=== PATIENT | female | born 1955 | race Caucasian/White ===

== ENCOUNTER 2017-10-23 12:56 | Emergency (ER) | payer OTHER ==
[2017-10-23] MEDS ORDERED: Acetaminophen 500 MG TAB ONE (13:50)
[2017-10-23] MEDS ORDERED: Ibuprofen 800 MG TAB ONE (13:50)
--- NOTE | 2017-10-23 14:29 | RAD ---
RIGHT ANKLE 3 VIEWS: HISTORY: Injury with pain. FINDINGS: Mild soft tissue swelling laterally. No evidence of fracture. IMPRESSION: No acute fracture identified. POS: [id number]
== END 2017-10-23 13:49 | disposition home or self-care (01) ==
LOC: MADERS 12:56
DX: S93.401A Sprain of unspecified ligament of right ankle, initial encounter (principal); E78.00 Pure hypercholesterolemia, unspecified; W19.XXXA Unspecified fall, initial encounter

== ENCOUNTER 2018-01-25 09:32 | Emergency (ER) | payer OTHER | END 2018-01-25 10:11 | disposition home or self-care (01) | LOC: MADERS 09:32 | DX: R05 Cough (principal); E78.5 Hyperlipidemia, unspecified; Z79.899 Other long term (current) drug therapy; K08.89 Other specified disorders of teeth and supporting structures | CPT/HCPCS: 99281 ==

== ENCOUNTER 2019-04-09 21:52 | Emergency (ER) | payer OTHER ==
--- NOTE | 2019-04-09 22:25 | RAD ---
XR Ankle Lt 3 View STANDARD INDICATION: Left ankle injury COMPARISON: None. FINDINGS: Bones: There is a mildly displaced spiral fracture involving the lateral malleolus. The distal fractu re fragment is displaced posterior laterally one cortex width. There is also an additional mildly impacted fracture involving the posterior malleolus. Ankle mortise: Symmetric. Talar Dome: Intact. Subtalar joint: Normal. Visualized hindfoot: Normal. Periarticular soft tissues: There is prominent soft tissue swelling surrounding the left ankle IMPRESSION: 1. Mildly displaced spiral fracture of the lateral malleolus. 2. Mildly impacted posterior malleolus fracture
== END 2019-04-09 23:05 | disposition home or self-care (01) ==
LOC: MADERS 21:52
DX: S82.842A Displaced bimalleolar fracture of left lower leg, initial encounter for closed fracture (principal); E78.00 Pure hypercholesterolemia, unspecified; F17.210 Nicotine dependence, cigarettes, uncomplicated; Z79.899 Other long term (current) drug therapy; W17.89XA Other fall from one level to another, initial encounter
CPT/HCPCS: 27810

== ENCOUNTER 2024-12-15 13:04 | Emergency (ER) | payer MEDICARE, SELFPAY ==
[~2024-12-15 13:04] MED LIST: Iopamidol 370 76% 100 ML VIAL ONE
[2024-12-15 13:51] LABS: #Basophils 0.1 thou/uL (0.0-0.2); #Eosinophils 0.1 thou/uL (0.0-0.7); #Lymphocytes 0.8 thou/uL (1.20-3.40); #Monocytes 0.7 thou/uL (0.11-0.59); #Neutrophils 9.7 thou/uL (1.40-6.50); %Basophils 0.6 % (0.0-1.0); %Eosinophils 0.6 % (0.0-10.0); %Lymphocytes 7.5 % (21.0-51.0); %Monocytes 5.7 % (0.0-10.0); %Neutrophils 85.6 % (42.0-75.0); Hematocrit 28.0 % (36.0-47.0); Hemoglobin 8.7 g/dL (12.0-16.0); Mean Corpuscular Hemoglobin 31.3 pg (27.0-31.0); Mean Corpuscular Volume 100.7 fl (78.0-98.0); Platelet Count 571 10x3/uL (130-400); Red Blood Cell (RBC) Count 2.78 mill/uL (4.20-5.40); White Blood Cell (WBC) Count 11.3 10x3/uL (4.8-10.8)
[2024-12-15 14:05] LABS: ALT (SGPT) 18 U/L (Less than 34); AST (SGOT) 31 U/L (11-34); Albumin 2.8 g/dL (3.1-4.5); Alkaline Phosphatase 124 U/L (40-110); Anion Gap 20 mmol/L (10-20); BUN (Urea Nitrogen) 12 mg/dL (9.8-20.1); Bilirubin, Total 0.3 mg/dL (0.3-1.2); Calc. Creatinine Clearance 0 mL/min (70-130); Calcium 8.8 mg/dL (7.8-10.44); Carbon Dioxide 15 mmol/L (23-31); Chloride 107 mmol/L (98-107); Globulin 3.8 g/dL (2.4-3.5); Glucose 130 mg/dL (80-115); Magnesium 1.3 mg/dL (1.6-2.6); Potassium 3.8 mmol/L (3.5-5.1); Sodium 138 mmol/L (136-145)
[2024-12-15] MEDS ORDERED: Magnesium 2 GM/50 ML BAG (IN WATER) ONE (14:31)
== END 2024-12-15 16:44 | disposition home or self-care (01) ==
LOC: MADERS 13:04
DX: J95.89 Other postprocedural complications and disorders of respiratory system, not elsewhere classified (principal); F41.1 Generalized anxiety disorder; D64.9 Anemia, unspecified; E83.42 Hypomagnesemia; E87.20 Acidosis, unspecified; F17.210 Nicotine dependence, cigarettes, uncomplicated
CPT/HCPCS: 71275; 83735; 93005; 94760; 96365; 96366; 96375; 99285; J2060; J3475; J7120; Q9967; 80053; 84443; 85025

== ENCOUNTER 2024-12-27 18:49 | Emergency (ER) | payer MEDICARE ==
[2024-12-27] MEDS ORDERED: Aspirin Chewable 81 MG TAB ONE (19:22)
[2024-12-27 19:28] LABS: #Basophils 0.1 thou/uL (0.0-0.2); #Eosinophils 0.0 thou/uL (0.0-0.7); #Lymphocytes 1.3 thou/uL (1.20-3.40); #Monocytes 1.1 thou/uL (0.11-0.59); #Neutrophils 5.7 thou/uL (1.40-6.50); %Basophils 0.7 % (0.0-1.0); %Eosinophils 0.4 % (0.0-10.0); %Lymphocytes 16.2 % (21.0-51.0); %Monocytes 13.4 % (0.0-10.0); %Neutrophils 69.3 % (42.0-75.0); Hematocrit 26.8 % (36.0-47.0); Hemoglobin 8.9 g/dL (12.0-16.0); Mean Corpuscular Hemoglobin 30.7 pg (27.0-31.0); Mean Corpuscular Volume 92.6 fl (78.0-98.0); Platelet Count 408 10x3/uL (130-400); Red Blood Cell (RBC) Count 2.90 mill/uL (4.20-5.40); White Blood Cell (WBC) Count 8.2 10x3/uL (4.8-10.8)
[2024-12-27 19:43] LABS: Troponin I Less than 0.010 ng/mL (< 0.028)
[2024-12-27 19:44] LABS: ALT (SGPT) 14 U/L (Less than 34); AST (SGOT) 23 U/L (11-34); Albumin 3.0 g/dL (3.1-4.5); Alkaline Phosphatase 125 U/L (40-110); Anion Gap 21 mmol/L (10-20); BUN (Urea Nitrogen) 9 mg/dL (9.8-20.1); Bilirubin, Total 0.4 mg/dL (0.3-1.2); Calc. Creatinine Clearance 0 mL/min (70-130); Calcium 9.2 mg/dL (7.8-10.44); Carbon Dioxide 19 mmol/L (23-31); Chloride 99 mmol/L (98-107); Globulin 4.1 g/dL (2.4-3.5); Glucose 129 mg/dL (80-115); Lipase 27 U/L (8-78); Magnesium 1.3 mg/dL (1.6-2.6); Potassium 3.9 mmol/L (3.5-5.1); Sodium 135 mmol/L (136-145)
[2024-12-27] MEDS ORDERED: Magnesium 2 GM/50 ML BAG (IN WATER) ONE (20:12)
[2024-12-27 21:51] LABS: Troponin I Less than 0.010 ng/mL (< 0.028)
== END 2024-12-27 22:25 | disposition home or self-care (01) ==
LOC: MADERS 18:49
DX: F41.1 Generalized anxiety disorder (principal); D64.9 Anemia, unspecified; E83.42 Hypomagnesemia; R63.0 Anorexia; E78.5 Hyperlipidemia, unspecified; C34.90 Malignant neoplasm of unspecified part of unspecified bronchus or lung; F17.210 Nicotine dependence, cigarettes, uncomplicated
CPT/HCPCS: 71045; 80053; 83690; 83735; 84484; 85025; 93005; 94760; 96365; 96375; J2060; J3475

== ENCOUNTER 2025-02-01 14:47 | Emergency (ER) | payer MEDICARE ==
[2025-02-01 15:34] LABS: #Basophils 0.0 thou/uL (0.0-0.2); #Eosinophils 0.4 thou/uL (0.0-0.7); #Lymphocytes 0.5 thou/uL (1.20-3.40); #Monocytes 0.7 thou/uL (0.11-0.59); #Neutrophils 4.4 thou/uL (1.40-6.50); %Basophils 0.7 % (0.0-1.0); %Eosinophils 6.3 % (0.0-10.0); %Lymphocytes 8.4 % (21.0-51.0); %Monocytes 11.7 % (0.0-10.0); %Neutrophils 72.8 % (42.0-75.0); Hematocrit 30.9 % (36.0-47.0); Hemoglobin 9.6 g/dL (12.0-16.0); Mean Corpuscular Hemoglobin 27.0 pg (27.0-31.0); Mean Corpuscular Volume 86.6 fl (78.0-98.0); Platelet Count 361 10x3/uL (130-400); Red Blood Cell (RBC) Count 3.58 mill/uL (4.20-5.40); White Blood Cell (WBC) Count 6.0 10x3/uL (4.8-10.8)
[2025-02-01 15:45] LABS: ALT (SGPT) 9 U/L (Less than 34); AST (SGOT) 19 U/L (11-34); Albumin 2.9 g/dL (3.1-4.5); Alkaline Phosphatase 118 U/L (40-110); Anion Gap 17 mmol/L (10-20); BUN (Urea Nitrogen) 10 mg/dL (9.8-20.1); Bilirubin, Total 0.2 mg/dL (0.3-1.2); Calc. Creatinine Clearance 0 mL/min (70-130); Calcium 8.6 mg/dL (7.8-10.44); Carbon Dioxide 19 mmol/L (23-31); Chloride 102 mmol/L (98-107); Globulin 3.4 g/dL (2.4-3.5); Glucose 107 mg/dL (80-115); Potassium 3.4 mmol/L (3.5-5.1); Sodium 135 mmol/L (136-145)
[2025-02-01 15:47] LABS: Troponin I Less than 0.010 ng/mL (< 0.028)
== END 2025-02-01 19:43 | disposition short-term general hospital (02) ==
LOC: MADERS 14:47
DX: J18.9 Pneumonia, unspecified organism (principal); R09.02 Hypoxemia; F17.210 Nicotine dependence, cigarettes, uncomplicated
CPT/HCPCS: 36415; 71275; 80053; 83605; 83880; 84484; 85025; 85379; 87040; 87077; 87149; 93005; 96365; J2543

== ENCOUNTER 2025-02-06 19:38 | Emergency (ER) | payer MEDICARE ==
[2025-02-06 20:19] LABS: #Basophils 0.0 thou/uL (0.0-0.2); #Eosinophils 0.3 thou/uL (0.0-0.7); #Lymphocytes 1.4 thou/uL (1.20-3.40); #Monocytes 0.8 thou/uL (0.11-0.59); #Neutrophils 5.9 thou/uL (1.40-6.50); %Basophils 0.6 % (0.0-1.0); %Eosinophils 3.9 % (0.0-10.0); %Lymphocytes 16.6 % (21.0-51.0); %Monocytes 9.8 % (0.0-10.0); %Neutrophils 69.1 % (42.0-75.0); Hematocrit 30.4 % (36.0-47.0); Hemoglobin 9.7 g/dL (12.0-16.0); Mean Corpuscular Hemoglobin 26.8 pg (27.0-31.0); Mean Corpuscular Volume 84.2 fl (78.0-98.0); Platelet Count 422 10x3/uL (130-400); Red Blood Cell (RBC) Count 3.61 mill/uL (4.20-5.40); White Blood Cell (WBC) Count 8.5 10x3/uL (4.8-10.8)
[2025-02-06 20:37] LABS: Troponin I 0.031 ng/mL (< 0.028)
[2025-02-06 20:38] LABS: ALT (SGPT) 13 U/L (Less than 34); AST (SGOT) 47 U/L (11-34); Albumin 2.6 g/dL (3.1-4.5); Alkaline Phosphatase 113 U/L (40-110); Anion Gap 18 mmol/L (10-20); BUN (Urea Nitrogen) 16 mg/dL (9.8-20.1); Bilirubin, Total 0.2 mg/dL (0.3-1.2); CK (CPK) 57 U/L (29-168); Calc. Creatinine Clearance 0 mL/min (70-130); Calcium 9.2 mg/dL (7.8-10.44); Carbon Dioxide 20 mmol/L (23-31); Chloride 102 mmol/L (98-107); Globulin 4.2 g/dL (2.4-3.5); Glucose 116 mg/dL (80-115); Magnesium 1.4 mg/dL (1.6-2.6); Potassium 3.6 mmol/L (3.5-5.1); Sodium 136 mmol/L (136-145)
[2025-02-06] MEDS ORDERED: Magnesium 2 GM/50 ML BAG (IN WATER) ONE (21:33)
[2025-02-06] MEDS ORDERED: Aspirin Chewable 81 MG TAB ONE (23:42)
[2025-02-07 01:01] LABS: Troponin I Less than 0.010 ng/mL (< 0.028)
[2025-02-07 08:36] LABS: Troponin I 0.034 ng/mL (< 0.028)
== END 2025-02-07 11:15 | disposition short-term general hospital (02) ==
LOC: MADERS 19:38
DX: J44.0 Chronic obstructive pulmonary disease with (acute) lower respiratory infection (principal); J18.9 Pneumonia, unspecified organism; J44.1 Chronic obstructive pulmonary disease with (acute) exacerbation; D64.9 Anemia, unspecified; E83.42 Hypomagnesemia; R79.89 Other specified abnormal findings of blood chemistry; E86.0 Dehydration; F17.210 Nicotine dependence, cigarettes, uncomplicated; Z79.899 Other long term (current) drug therapy; Z79.51 Long term (current) use of inhaled steroids
CPT/HCPCS: 36415; 71045; 71275; 74177; 80053; 82550; 83605; 83735; 83880; 84484; 85025; 85379; 87040; 93005; 96365; 96366; 96367; 96375; J0692; J2919; J3373; J3475; J7030; Q9967

== ENCOUNTER 2025-02-19 15:11 | Emergency (ER) | payer MEDICARE ==
[2025-02-19 16:12] LABS: #Basophils 0.1 thou/uL (0.0-0.2); #Eosinophils 0.0 thou/uL (0.0-0.7); #Lymphocytes 0.5 thou/uL (1.20-3.40); #Monocytes 0.5 thou/uL (0.11-0.59); #Neutrophils 12.8 thou/uL (1.40-6.50); %Basophils 0.5 % (0.0-1.0); %Eosinophils 0.1 % (0.0-10.0); %Lymphocytes 3.7 % (21.0-51.0); %Monocytes 3.6 % (0.0-10.0); %Neutrophils 92.2 % (42.0-75.0); Hematocrit 29.0 % (36.0-47.0); Hemoglobin 9.0 g/dL (12.0-16.0); Mean Corpuscular Hemoglobin 26.3 pg (27.0-31.0); Mean Corpuscular Volume 84.9 fl (78.0-98.0); Platelet Count 296 10x3/uL (130-400); Red Blood Cell (RBC) Count 3.41 mill/uL (4.20-5.40); White Blood Cell (WBC) Count 13.8 10x3/uL (4.8-10.8)
[2025-02-19 16:33] LABS: ALT (SGPT) 20 U/L (Less than 34); AST (SGOT) 25 U/L (11-34); Albumin 2.6 g/dL (3.1-4.5); Alkaline Phosphatase 82 U/L (40-110); Anion Gap 15 mmol/L (10-20); BUN (Urea Nitrogen) 16 mg/dL (9.8-20.1); Bilirubin, Total 0.4 mg/dL (0.3-1.2); Calc. Creatinine Clearance 0 mL/min (70-130); Calcium 8.4 mg/dL (7.8-10.44); Carbon Dioxide 21 mmol/L (23-31); Chloride 104 mmol/L (98-107); Globulin 3.6 g/dL (2.4-3.5); Glucose 125 mg/dL (80-115); Potassium 4.2 mmol/L (3.5-5.1); Sodium 136 mmol/L (136-145)
[2025-02-19 16:34] LABS: Troponin I Less than 0.010 ng/mL (< 0.028)
[2025-02-19 16:35] LABS: Bicarbonate (HCO3v) 23.6 mmol/L (22.0-28.0); CO2 Tension (PvCO2) 34.7 mmHg (42.0-51.0); Calcium, Ionized 1.13 mmol/L (1.15-1.33); Chloride 105 mmol/L (98-107); Hemoglobin - Calc 9.5 g/dL (12.0-16.0); Potassium 4.3 mmol/L (3.5-5.1); Sodium 135 mmol/L (138-145); T. Carbon Dioxide 24.6 mmol/L (22.0-28.0); vO2 Saturation-calc 99.4 % (60.0-85.0)
[2025-02-19] MEDS ORDERED: Cefepime 2 GM VIAL ONE (19:06)
== END 2025-02-19 21:51 | disposition short-term general hospital (02) ==
LOC: MADERS 15:11
DX: J44.0 Chronic obstructive pulmonary disease with (acute) lower respiratory infection (principal); J18.9 Pneumonia, unspecified organism; F17.210 Nicotine dependence, cigarettes, uncomplicated; Z79.899 Other long term (current) drug therapy; Z79.52 Long term (current) use of systemic steroids
CPT/HCPCS: 71045; 71275; 80053; 82330; 82435; 82803; 83880; 84132; 84295; 84484; 85014; 85025; 85379; 93005; 94760; J0692; 36415; 96365; Q9967